=== PATIENT | female | born 1995 | race African-American/Black ===

== ENCOUNTER 2016-12-17 17:09 | Emergency (ER) | payer OTHER ==
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
[2016-12-17 19:07] VITALS: BP 132/87
== END 2016-12-17 19:08 | disposition home or self-care (01) ==
LOC: P.ED 17:09
DX: S13.4XXA Sprain of ligaments of cervical spine, initial encounter (principal); M79.1 Myalgia; M54.9 Dorsalgia, unspecified; M54.2 Cervicalgia; Y04.8XXA Assault by other bodily force, initial encounter